=== PATIENT | male | born 1970 | race Caucasian/White ===

== ENCOUNTER 2019-08-06 13:43 | Emergency (ER) | payer BC ==
[2019-08-06] MEDS ORDERED: diphenhydrAMINE 50 MG/ML SDV IVPUSH ONE (14:08)
[2019-08-06] MEDS ORDERED: Ketorolac 30 MG/ML SDV IVPUSH ONE (14:08)
[2019-08-06] MEDS ORDERED: Sodium Chloride 0.9% 10 ML Syringe FLUSH PRN (14:08)
[2019-08-06] MEDS ORDERED: Metoclopramide 10 MG/2 ML SDV IVPUSH ONE (14:08)
[2019-08-06] MEDS ORDERED: Sodium Chloride 0.9% 1,000 ML IV SCH (14:15)
--- NOTE | 2019-08-06 14:18 | EDM.PDOC ---
ED HPI GENERAL MEDICAL PROBLEM - General Chief Complaint: Respiratory Problem Stated Complaint: HEADACHE AND FEVER Time Seen by Provider: 08/06/19 13:57 Source of Information: Reports: Patient, RN Notes Reviewed History Limitations: Reports: No Limitations - History of Present Illness INITIAL COMMENTS - FREE TEXT/NARRATIVE: Patient is a 49-year-old male who presents to the ED for evaluation of multiple symptoms. Patient is complaining of a fever, as high as 103.0 F at home, his temperature at time of triage is 100.9 F. Patient notes that he has some generalized chest tightness, chills, extreme headache and body aches. The patient is a smoker, roughly 1 pack/day for the last 30 years. He states that he has been to work, and has been exposed to coworkers who have traveled recently within the last 14 days, to [place], [place], and [facility]. He states these are all relatively young healthy people and they have not had any symptoms. The patient did not take any sort of medications at home for management of this. Patient notes that his primary care is Thuan Falcon. The patient states that he did have a recent round of strep, and he states that he did take some antibiotics for this, and he finished around 10 days ago. He states that he is not having any sore throat or throat pain at this time, he states there is some mild irritation due to the dry intermittent coughing he has been having. Generalized Pain Score (Numeric/FACES): 7 - Related Data Allergies Allergy/AdvReac Type Severity Reaction Status Date / Time No Known Allergies Allergy Verified 08/06/19 13:54 Past Medical History - Past Health History Medical/Surgical History: Denies Medical/Surgical History Social & Family History - Tobacco Use Smoking Status *Q: Current Every Day Smoker Years of Tobacco use: 30 Packs/Tins Daily: 1 ED ROS GENERAL - Review of Systems Review Of Systems: See Below Constitutional: Reports: Fever, Chills, Malaise HEENT: Denies: Throat Pain Respiratory: Reports: Cough. Denies: Shortness of Breath Cardiovascular: Reports: Chest Pain (generalized chest tightness, from coughing) GI/Abdominal: Denies: Abdominal Pain, Nausea, Vomiting Musculoskeletal: Reports: Back Pain (tightness between shoulder blades) Neurological: Reports: Headache (generalized, band-like headache, worsens w coughing) ED EXAM, GENERAL - Physical Exam Exam: See Below Exam Limited By: No Limitations General Appearance: Alert, WD/WN, No Apparent Distress Nose: Normal Inspection Throat/Mouth: Normal Inspection, Normal Lips, Normal Teeth, Normal Gums, Normal Oropharynx, Normal Voice, No Airway Compromise Head: Atraumatic, Normocephalic Neck: Normal Inspection Respiratory/Chest: No Respiratory Distress, Lungs Clear, Normal Breath Sounds, No Accessory Muscle Use, Chest Non-Tender Cardiovascular: Normal Peripheral Pulses, Regular Rate, Rhythm, No Murmur Peripheral Pulses: 3+: Radial (L), Radial (R) GI/Abdominal: Normal Bowel Sounds, Soft, Non-Tender, No Distention, No Mass Extremities: Normal Inspection, Normal Capillary Refill Neurological: Alert, Oriented, Normal Cognition, No Motor/Sensory Deficits Psychiatric: Normal Affect, Normal Mood Skin Exam: Warm, Dry, Intact, Normal Color, No Rash Course - Vital Signs Last Recorded V/S: Last Vital Signs Temp 100.9 F H 08/06/19 13:52 Pulse 97 08/06/19 13:52 Resp 16 08/06/19 13:52 BP 161/94 H 08/06/19 13:52 Pulse Ox 97 08/06/19 13:52 - Orders/Labs/Meds Orders: Active Orders 24 hr Category Date Time Status Peripheral IV Care [RC] . DIRECTED Care 08/06/19 14:08 Active Chest 1V Frontal [CR] Stat Exams 08/06/19 14:47 Taken CORONAVIRUS (COVID-19) PCR [MREF] Stat Lab 08/06/19 15:01 Received Sodium Chloride 0.9% [Normal Saline] 1,000 ml Med 08/06/19 14:15 Active IV ASDIRECTED Sodium Chloride 0.9% [Saline Flush] Med 08/06/19 14:08 Active 10 ml FLUSH ASDIRECTED PRN Isolation [COMM] Routine Oth 08/06/19 13:57 Ordered Peripheral IV Insertion Adult [OM.PC] Routine Oth 08/06/19 14:08 Ordered Medication Orders Sodium Chloride (Normal Saline) 1,000 mls @ 999 mls/hr IV ASDIRECTED GINETET Last Admin: 08/06/19 15:00 Dose: 999 mls/hr Sodium Chloride (Saline Flush) 10 ml FLUSH ASDIRECTED PRN PRN Reason: Keep Vein Open Last Admin: 08/06/19 14:56 Dose: 10 ml Meds: Medications Generic Name Dose Route Start Last Admin Trade Name Freq PRN Reason Stop Dose Admin Sodium Chloride 1,000 mls @ 999 mls/hr 08/06/19 14:15 08/06/19 15:00 Normal Saline IV 999 mls/hr ASDIRECTED GINETTE Administration Sodium Chloride 10 ml 08/06/19 14:08 08/06/19 14:56 Saline Flush FLUSH 10 ml ASDIRECTED PRN Administration Keep Vein Open Discontinued Medications Generic Name Dose Route Start Last Admin Trade Name Freq PRN Reason Stop Dose Admin Diphenhydramine HCl 25 mg 08/06/19 14:08 08/06/19 14:57 Benadryl IVPUSH 08/06/19 14:09 25 mg ONETIME ONE Administration Ketorolac Tromethamine 30 mg 08/06/19 14:08 08/06/19 14:58 Toradol IVPUSH 08/06/19 14:09 30 mg ONETIME ONE Administration Metoclopramide HCl 10 mg 08/06/19 14:08 08/06/19 14:56 Reglan IVPUSH 08/06/19 14:09 10 mg ONETIME ONE Administration - Re-Assessments/Exams Free Text/Narrative Re-Assessment/Exam: 08/06/19 14:20 Patient presents to the ED for the evaluation of his cold-like symptoms. I did order influenza, and a COVID-19 screening due to his history of having contacts with other coworkers who have traveled from [place], [place], and [place]. I did also order IV to be placed with some fluids and some medications for his headache at this time. 08/06/19 15:49 Patient's influenza screen is negative at this time. I will reassess him at this time and likely discharge him home with general recommendations and have him self quarantine until he gets the results from his COVID-19 testing. Departure - Departure Time of Disposition: 16:04 Disposition: Home, Self-Care 01 Condition: Fair Clinical Impression: Viral URI with cough - Discharge Information *PRESCRIPTION DRUG MONITORING PROGRAM REVIEWED*: No *COPY OF PRESCRIPTION DRUG MONITORING REPORT IN PATIENT AJ: No Instructions: Viral Respiratory Infection, [id number] Referrals: Thuan Falcon Jr, MD [Primary Care Provider] - Forms: ED Department Discharge, ED Return to Work/School Form Additional Instructions: You have been evaluated in the ED today for your cold like symptoms. Your influenza screen was negative at today's visit, your chest x-ray also demonstrated no sign of an infiltrate like a pneumonia at this time. Please increase your fluid intake. Get plenty of rest as well. You should feel better in a few days. As with any illness, please try to limit your exposure to others to help mitigate the spread of germs. Please also remember to wash your hands after you cough/sneeze. Please try to limit touching your face, and then touching other surfaces. Recommend that you take some [id number] nasal decongestants, cough/cold remedies to combat this. You may take 500mg Tylenol (acetaminophen) or 600mg Advil/Motrin (ibuprofen) every 6 hours as needed for further pain/fever relief. Do not exceed 4000 mg Tylenol or 3200 mg ibuprofen in a 24-hour time span. If you have high blood pressure, medications like Coricidin would be adequate to use. Regarding testing for COVID-19, you were tested for this virus, but results will take a few days to get as this is a send out test to [facility]. You will be called and made notified of positive or negative results in the next few days. Please try to self quarantine at your home 7 days after symptoms have started at least or until told otherwise by different provider when your testing has been completed. Please return to the ED if your symptoms change or worsen. Sepsis Event Note - Evaluation Sepsis Screening Result: No Definite Risk - Focused Exam Vital Signs: Vital Signs Temp Pulse Resp BP Pulse Ox 08/06/19 13:52 100.9 F H 97 16 161/94 H 97 Date Exam was Performed: 08/06/19 Time Exam was Performed: 16:09 - My Orders Last 24 Hours: My Active Orders 08/06/19 13:57 Isolation [COMM] Routine 08/06/19 14:08 Peripheral IV Care [RC] . DIRECTED Sodium Chloride 0.9% [Saline Flush] 10 ml FLUSH ASDIRECTED PRN Peripheral IV Insertion Adult [OM.PC] Routine 08/06/19 14:15 Sodium Chloride 0.9% [Normal Saline] 1,000 ml IV ASDIRECTED 08/06/19 14:47 Chest 1V Frontal [CR] Stat 08/06/19 15:01 CORONAVIRUS (COVID-19) PCR [MREF] Stat - Assessment/Plan Last 24 Hours: My Active Orders 08/06/19 13:57 Isolation [COMM] Routine 08/06/19 14:08 Peripheral IV Care [RC] . DIRECTED Sodium Chloride 0.9% [Saline Flush] 10 ml FLUSH ASDIRECTED PRN Peripheral IV Insertion Adult [OM.PC] Routine 08/06/19 14:15 Sodium Chloride 0.9% [Normal Saline] 1,000 ml IV ASDIRECTED 08/06/19 14:47 Chest 1V Frontal [CR] Stat 08/06/19 15:01 CORONAVIRUS (COVID-19) PCR [MREF] Stat
--- NOTE | 2019-08-08 07:39 | CR ---
Chest: Portable view of the chest was obtained. Comparison: No prior chest imaging. Heart size and mediastinum are normal. Lungs are clear with no acute parenchymal change. Bony structures are grossly intact. Impression: 1. Nothing acute is seen on portable chest x-ray. Diagnostic code #1 This report was dictated in MDT
== END 2019-08-06 16:44 | disposition home or self-care (01) ==
LOC: JD.ED 13:43
DX: J06.9 Acute upper respiratory infection, unspecified (principal); F17.210 Nicotine dependence, cigarettes, uncomplicated
CPT/HCPCS: 71045; 87804; 96374; 96375; 99285; J1200; J1885; J2765; J7030; U0001; 99283